=== PATIENT | female | born 1950 | race Two or more races ===

== ENCOUNTER 2023-08-16 19:25 | Observation (INO) | payer OTHER, MEDICAID ==
[~2023-08-16] VITALS: Ht 157.5 cm; Wt 78.7 kg
[2023-08-16 20:01] VITALS: PULSE 70; RESP 13; O2SAT 95
[2023-08-16 20:27] LABS: Basophils # (auto) 0.1 10 ^3/uL (0-0.2); Basophils % (auto) 0.7 % (0.0-2.0); Eosinophils # (auto) 0.3 10 ^3/uL (0-0.8); Eosinophils % (auto) 3.9 % (0.0-7.0); Hematocrit 43.2 % (36.0-46.0); Hemoglobin 14.5 g/dL (12.2-16.2); Lymphocytes # (auto) 2.8 10 ^3/uL (0.4-5.4); Lymphocytes % (auto) 32.3 % (10.0-50.0); Mean Corpuscular Hemoglobin 30.6 pg (28.0-32.0); Mean Corpuscular Hgb Conc. 33.5 g/dL (32.0-36.0); Mean Corpuscular Volume 91.4 fL (80.0-100.0); Monocytes # (auto) 0.5 10 ^3/uL (0-1.3); Monocytes % (auto) 5.6 % (0.0-12.0); Neutrophils # (auto) 4.9 10 ^3/uL (1.6-8.6); Neutrophils % (auto) 57.5 % (37.0-80.0); Red Blood Cells 4.72 10^6/uL (4.0-5.20); Red Cell Distribution Width 13.8 % (11.8-14.3); White Blood Cell 8.5 10^3/uL (4.4-10.8)
[2023-08-16 20:39] LABS: Alanine Aminotransferase 29 U/L (7-40); Albumin 4.2 g/dL (3.2-4.8); Alkaline Phosphatase 70 U/L (46-116); Anion Gap 4 (5-15); Aspartate Aminotransferase 22 U/L (13-40); BUN/Creatinine Ratio 15.2 (10.0-20.0); Bilirubin, Total 0.5 mg/dL (0.2-1.0); Blood Urea Nitrogen 10 mg/dL (9-23); Calcium 9.3 mg/dL (8.7-10.4); Carbon Dioxide 31 mmol/L (20-30); Chloride 104 mmol/L (98-107); Glucose 112 mg/dL (74-106); Potassium 4.2 mmol/L (3.5-5.1); Sodium 139 mmol/L (136-145); Total Protein 6.1 g/dL (5.7-8.2)
[2023-08-16] MEDS ORDERED: fentaNYL CITRATE 100 MCG/2 ML VL IV ONE (23:15)
[2023-08-17 00:46] LABS: Basophils # (auto) 0 10 ^3/uL (0-0.2); Basophils % (auto) 0.4 % (0.0-2.0); Eosinophils # (auto) 0.1 10 ^3/uL (0-0.8); Eosinophils % (auto) 1.8 % (0.0-7.0); Hematocrit 43.5 % (36.0-46.0); Hemoglobin 14.6 g/dL (12.2-16.2); Lymphocytes # (auto) 1.6 10 ^3/uL (0.4-5.4); Lymphocytes % (auto) 19.6 % (10.0-50.0); Mean Corpuscular Hemoglobin 30.8 pg (28.0-32.0); Mean Corpuscular Hgb Conc. 33.6 g/dL (32.0-36.0); Mean Corpuscular Volume 91.7 fL (80.0-100.0); Monocytes # (auto) 0.6 10 ^3/uL (0-1.3); Monocytes % (auto) 7.9 % (0.0-12.0); Neutrophils # (auto) 5.6 10 ^3/uL (1.6-8.6); Neutrophils % (auto) 70.3 % (37.0-80.0); Red Blood Cells 4.74 10^6/uL (4.0-5.20); Red Cell Distribution Width 13.4 % (11.8-14.3)
[2023-08-17 00:50] LABS: Urine Bacteria NONE SEEN /hpf (None Seen); Urine Blood Negative /uL (Negative); Urine Clarity Clear (Clear); Urine Color Colorless (Yellow); Urine Protein, UAD Negative (Negative); Urine Urobilinogen Normal (Negative); Urine WBC <1 /hpf (0 - 5)
[2023-08-17 01:18] LABS: INR 1.12 (0.9-1.15); Partial Thromboplastin Time 29.5 SEC (24.5-34.5); Prothrombin Time 11.7 sec (9.3-11.8)
[2023-08-17] MEDS ORDERED: PAR20T GT (03:44)
[2023-08-17] MEDS ORDERED: BETH50TA2 PO (03:44)
[2023-08-17] MEDS ORDERED: LEVO50TA7 PO (03:45)
[2023-08-17] MEDS ORDERED: ONDANSETRON HCL 4 MG/2 ML VIAL IV PRN (04:00)
[2023-08-17] MEDS ORDERED: ACETAMINOPHEN 325 MG TAB PO PRN (04:00)
[2023-08-17] MEDS: MORPHINE SULFATE INJ 2 MG/ml SYRG IV PRN (06:14)
[2023-08-17 08:00] VITALS: PULSE 73; RESP 19; O2SAT 96
[2023-08-17] MEDS ORDERED: POLYETHYLENE GLYCOL 17 GM PWDR PO ONE ×2 (10:15→13:15)
[2023-08-17] MEDS ORDERED: LEVOTHYROXINE SODIUM 50 MCG TAB PO ONE (11:00)
[2023-08-17] MEDS: HYDROcodone-ACET 5/325MG TAB PO PRN ×2 (16:02→21:18)
[2023-08-17] MEDS: DOCUSATE SOD 100 MG CAP PO SCH (23:13)
[2023-08-18] MEDS: LEVOTHYROXINE SODIUM 50 MCG TAB PO SCH (07:06)
[2023-08-18 08:00] VITALS: PULSE 73; RESP 16; O2SAT 97
[2023-08-18] MEDS: PARoxetine 20 MG TAB PO SCH (10:02)
[2023-08-18] MEDS: DOCUSATE SOD 100 MG CAP PO SCH ×2 (10:02→22:39)
[2023-08-18] MEDS: HYDROcodone-ACET 5/325MG TAB PO PRN ×2 (13:03→22:40)
[2023-08-18] MEDS: MORPHINE SULFATE INJ 2 MG/ml SYRG IV PRN (17:47)
[2023-08-18 18:00] VITALS: RESP 19; O2SAT 96
[2023-08-18 19:35] VITALS: PULSE 72; RESP 13; O2SAT 94
[2023-08-18 22:33] VITALS: BP 103/56; PULSE 78; RESP 18; TEMP 98.4; O2SAT 93
[2023-08-19] VITALS (7 sets, daily range): BP systolic 109–130; BP diastolic 54–68; PULSE 62–78; RESP 14–20; TEMP 97.7–98.7; O2SAT 95–98
[2023-08-19] MEDS: LEVOTHYROXINE SODIUM 50 MCG TAB PO SCH (06:29)
[2023-08-19] MEDS: HYDROcodone-ACET 5/325MG TAB PO PRN ×3 (06:30→21:19)
[2023-08-19] MEDS: DOCUSATE SOD 100 MG CAP PO SCH ×2 (09:29→21:18)
[2023-08-19] MEDS: PARoxetine 20 MG TAB PO SCH (09:29)
[2023-08-20] MEDS: HYDROcodone-ACET 5/325MG TAB PO PRN ×2 (05:21→15:09)
[2023-08-20] MEDS: LEVOTHYROXINE SODIUM 50 MCG TAB PO SCH (06:00)
[2023-08-20 08:00] VITALS: BP 112/62; PULSE 65; RESP 16; RESP 18; TEMP 97.6; O2SAT 94; O2SAT 98
[2023-08-20] MEDS: PARoxetine 20 MG TAB PO SCH (10:21)
[2023-08-20] MEDS: DOCUSATE SOD 100 MG CAP PO SCH (10:21)
[2023-08-20 10:57] LABS: Hepatitis B Surface Antigen Negative (Negative)
[2023-08-20 11:17] LABS: Hepatitis C Antibody Negative (Negative)
[2023-08-20 12:00] VITALS: BP 120/53; PULSE 72; RESP 20; TEMP 97.5; O2SAT 95
[2023-08-20 15:41] VITALS: BP 120/58; PULSE 72; RESP 18; TEMP 97.5; O2SAT 95
== END 2023-08-20 16:06 ==
LOC: ER 19:25 → EDBD 19:25 → OVERFLOW 08-17 04:04 → EAST 08-18 21:34
PROVIDERS: ADMIT Internal Medicine; ATTEND Internal Medicine
DX: S32.591A Other specified fracture of right pubis, initial encounter for closed fracture (principal); S32.592A Other specified fracture of left pubis, initial encounter for closed fracture; M16.0 Bilateral primary osteoarthritis of hip; I10 Essential (primary) hypertension; D69.6 Thrombocytopenia, unspecified; E03.9 Hypothyroidism, unspecified; F32.9 Major depressive disorder, single episode, unspecified; Z86.73 Personal history of transient ischemic attack (TIA), and cerebral infarction without residual deficits; Z79.899 Other long term (current) drug therapy; W18.30XA Fall on same level, unspecified, initial encounter; Y93.89 Activity, other specified; Y92.89 Other specified places as the place of occurrence of the external cause; Y99.8 Other external cause status
CPT/HCPCS: 36415; 71250; 73560; 74176; 80053; 81001; 84484; 85025; 85610; 85730; 86803; 87340; 96374; 96375; 96376; 97163; 99285; G0378; J2270; J2405; J3010